=== PATIENT | female | born 1965 | race Caucasian/White ===

== ENCOUNTER 2017-07-02 14:09 | Emergency (ER) | payer BC | END 2017-07-02 18:10 | disposition home or self-care (01) | LOC: FTE 14:09 | DX: J06.9 Acute upper respiratory infection, unspecified (principal); I10 Essential (primary) hypertension; E11.9 Type 2 diabetes mellitus without complications; Z87.891 Personal history of nicotine dependence | CPT/HCPCS: 71045; 99283-25 ==